=== PATIENT | female | born 1985 | race Caucasian/White ===

== ENCOUNTER 2025-01-22 07:57 | Outpatient (REF) | payer BC, SELFPAY ==
--- NOTE | ~2025-01-22 | MM_ITS ---
EXAMINATION: MM SCREENING DIGITAL BREAST TOMOSYNTHESIS, BILATERAL CLINICAL INFORMATION: Baseline screening. COMPARISON: Mammography: Comparison is made with available priors TECHNIQUE: Digital breast mammography with tomosynthesis is performed in both the craniocaudal and mediolateral oblique views along with computer-aided detection (CAD). FINDINGS: The breasts are heterogeneously dense, which may obscure small masses (ACR BI-RADS breast composition Category c). Left: Asymmetry medial breast anterior to middle depth on CC view. Asymmetry lateral breast posterior depth on CC view. No suspicious calcifications or other abnormal findings. Right: Asymmetry lower breast posterior depth on MLO view. No suspicious calcifications or other abnormal findings. MM/MM tomosynthesis screening BI IMPRESSION: Additional imaging is recommended ASSESSMENT: BI-RADS BI-RADS 0 - Incomplete: Needs additional Imaging. RECOMMENDATION: 1. Additional views of the bilateral breasts. 2. Targeted ultrasound if warranted after review of the additional views. 3. Radiology department staff will contact the patient for additional imaging. Additional Imaging required This examination should not preclude the clinical evaluation of a suspicious palpable abnormality. This patient's information was entered into a reminder system with a target due date for their next mammogram. Electronically signed by: Liseth Jama DO 01/24/2025 10:03 AM EDT
--- OUTSIDE RECORDS SUMMARY | 2025-01-22 08:10 | XMS_ITS | Clinical Summary ---
Author Organization [facility] Address [address] [place] [address] Care Team Providers Care Hydroelectric Plant Structural Engineer Name Role Phone Chantal Kahn Primary Care Provider [phone] Source Comments PLEASE NOTE, if this patient is a minor, it may be UNLAWFUL to discuss sensitive information that is contained in these records (such as FAMILY PLANNING, MENTAL HEALTH or SUBSTANCE ABUSE) with the minor patient's parent or other person without the patient's specific authorization.[facility] Allergies No known active allergies Medications buPROPion HCL (WELLBUTRIN SR) 200 mg 12 hr tablet take 1 tablet by mouth once daily after LUNCH 90 Tablet 06/18/2024 Active Active Problems Problem Noted Date Diagnosed Date Anxiety 01/27/2024 Breast lump in female 01/27/2024 Immunizations Name Administration Dates Next Due Flu, Preservative Free 08/31/2021,10/24/2020 MODERNA COVID-19 VACCINE BIV ALENT, BLUE CAP, 6M+ 09/09/2022 Moderna COVID-19 Vaccine, re d cap blue label, 12+ Primary Series 11/02/2021,12/19/2020,11/21/2020 TDAP 02/14/2023 Family History Medical History Relation Name Comments Hypertrophic cardiomyopathy Maternal Grandfather Pituitary Tumor Maternal Grandfather Breast cancer Maternal Grandmother Breast cancer Mother Hypertension Mother Breast cancer Paternal Aunt Stomach Cancer Paternal Grandfather Breast cancer Paternal Grandmother Relation Name Status Comments Maternal Grandfather Maternal Grandmother Mother Paternal Aunt Paternal Grandfather Paternal Grandmother Social History Tobacco Use Types Packs/Day Years Used Date Smoking Tobacco: Never Smokeless Tobacco: Never Tobacco Cessation:Counseling Given: Not Answered Alcohol Use Standard Drinks/Week Comments Yes 1 (1 standard drink = 0.6 oz pur e alcohol) Social Connections Answer Date Recorded Connectedness 0 07/28/2024 Financial Resource Strain Answer Date R ecorded Financial Resource Strain 0 2021 Stress Answer Date Recorded Stress 0 08/11/2022 Physical Activity Answer Date Recorded Physical Activity 0 08/11/2022 Food Insecurity Answer Date Recorded Food 0 08/09/2024 Transportation Needs Answer Date Record ed Transportation 0 08/11/2022 Housing Stability Answer Date Recorded Housing 0 08/11/2022 Safety and Environment Answer Date Brooks rded Safety 0 08/11/2022 Utilities Answer Date Recorded Utilities 0 08/11/2022 Employment Answer Date Recorded Stress 0 07/28/2024 Comments Unknown Sex and Gender Information Value Date Recorded Sex Assigned at Female 09/18/2022 6:08 AM PDT Legal Sex Female 12:51 PM PDT Gender Identity Female 08/23/2022 10:09 AM PDT Sexual Orientation Queer 08/23/2022 10 :09 AM PDT Last Filed Vital Signs Vital Sign Reading Time Taken Comments Blood Pressure 103/73 03/21/2024 10:27 AM EDT Pulse 80 03/21/2024 10:27 AM EDT Temperature 36.9 ??C (98.4 ??F) 03/21/2024 1 0:27 AM EDT Respiratory Rate 12 03/21/2024 10:2 7 AM EDT Oxygen Saturation 97% 03/21/2024 10: 27 AM EDT Inhaled Oxygen Concentration - - Weight 66.6 kg (146 lb 12.8 oz) 024 10:27 AM EDT Height 166.4 cm (5' 5.5 ) 03/21/2024 10 :27 AM EDT Body Mass Index 24.06 03/21/2024 10:27 AM EDT Plan of Treatment Health Maintenance Due Date Last Done Comments Hepatitis C Screening 1985 Imm-HPV (27-45) (1 - Risk 3- dose series) 1996 HIV Screening 2000 Relationship Safety Screening/Counseling 2000 Dental Prophy 08/06/2023 02/01/2023 Dental BW 02/04/2024 02/01/2023 Dental Examination 02/04/2024 02/01/2023 Dental Perio Charting 02/04/2024 02/01/2023 [id number] ( season) 2024 09/09/2022, 11/02/2021, 12/19/2020, Additional history exists Imm-Influenza (#1) 2024 08/31/2021, 10/24/2020 Alcohol and Drug Screen 11/14/2024 01/27/2024, 01/26 Depression Annual Screen 11/14/2024 01/27/2024 Tobacco Screening 06/18/2025 06/18/2024 Diabetes Screening 01/26/2027 01/27/2024, 0 01/27/2024, 10/24/2020, Additional history exists Hypertension Screening (#1) 03/21/2027 Pap Smear 03/21/2027 03/21/2024 Dental FMX/Pano 02/04/2028 02/01/2023, 02/01/2023 Cervical Cancer Screening 03/21/2029 HPV Screening 03/21/2029 03/21/2024 Pap + HPV 03/21/2029 03/21/2024 Imm-DTaP/Tdap/Td (2 - Td or Tdap) 02/14/2033 023 Cervical Ablation/Cold-Knife Conization Discontinued Cervical Cryotherapy Discontinued Colposcopy Discontinued Endometrial Biopsy Discontinued Excision/Leep Discontinued HPV Genotyping Discontinued Imm-Hepatitis B Discontinued Vaginal Pap Discontinued Vulvoscopy Discontinued Procedures Procedure Name Priority Date/Time Associated Diagnosis Comments HPV PRIMARY SCREENING >=25 YRS WHEN + RFX TO PAP Routine 03/21/2024 11:06 AM EDT Screening for cervical cancer COMPREHENSIVE METABOLIC PANEL Routine 01/27/2024 11:36 AM EDT Encounter for general adult medical examination with abnormal findings PANORAMIC RADIOGRAPHIC IMAGE Routine 02/01/2023 8:45 AM EDT Encounter for dental examination Encounter for dental examination and cleaning with abnormal findings INTRAORAL - COMP SERIES OF RADIOGRAPHIC IMAGES Routine 02/01/2023 8:45 AM EDT Encounter for dental examination Encounter for dental examination and cleaning with abnormal findings PROPHYLAXIS - ADULT Routine 02/01/2023 8 :45 AM EDT Encounter for dental examination Encounter for dental examination and cleaning with abnormal findings PERIODIC ORAL EVALUATION ESTABLISHED PATIENT Routine 02/01/2023 8:45 AM EDT Encounter for dental examination Encounter for dental examination and cleaning with abnormal findings from Last 3 Months or Most Recently Relevant to Health Maintenance Results * HPV PRIMARY SCREENING >=25 YRS WHEN + RFX TO PAP (03/21/2024 11:06 AM EDT) HPV HIGH RISK DNA (NON 16/18) Not Detected Not Detected [facility] Comment: SPECIMEN SOURCE: ?? HPV Primary Screening > 25yo, when positive ? reflex to PAP, CERVIX CLINICAL ? INFORMATION: ? Provided Diagnosis Codes: Z12.4 HPV18 DNA, INVADER(R) Not Detected Not Detected [facility] HPV16 DNA, INVADER(R) Not Detected Not Detected [facility] Comment: HPV High Risk DNA (Non 16/18) (1,2,3,4,5) HPV High Risk DNA Type 18 (1,2,3,4,5) HPV High Risk DNA Type 16 (1,2,3,4,5) (1) The sandra(R) HPV test is FDA-cleared for ThinPrep(R) specimens and detects genomic HPV DNA in the polymorphic L1 region in 14 subtypes: Type 16, Type 18, and other high risk types (31,33,35,39,45,51,52,56,58,59,66,68). The test has been modified and validated for use in SurePath(TM) specimens. (2) HPV types 16 and/or 18 that were Not Detected were undetectable or below the pre-set threshold. (3) The non-repeat rate for HPV genotyping assays varies from 5 to 15%. ?? In the NILM cytology category, there is a low positive predictive value (PPV = 15-20%) for CIN2+ with a positive high risk HPV result. (4) This test was evaluated and its performance characteristics determined by [facility]. ??It has not been cleared or approved by the U.S. Food and Drug Administration. ??The FDA has determined that such clearance or approval is not necessary. ?? [facility] is certified under the Clinical Laboratory Improvement Amendments of 1988 (CLIA) as qualified to perform high complexity clinical testing. ??This test is used for clinical purposes. It should not be regarded as investigational or for research. (5) Results should be interpreted together with past and current clinical and laboratory data. Cervix Cervix uteri structure / Unknown 03/21/2024 11:06 AM EDT 03/21/2024 10:31 PM EDT Hai Ji MANAGER CLEANING-BC LAB - NO BLOOD DRAW Final R esult [facility] [address] [place] [address] [employer] [place] [address], * COMPREHENSIVE METABOLIC PANEL (01/27/2024 11:36 AM EDT) TOTAL PROTEIN 7.0 5.9 - 8.4 g/dL [facility] ALBUMIN 4.8 3.5 - 5.2 g/dL [facility] GLOBULIN 2.2 1.7 - 3.7 g/dL [facility] A/G RATIO 2.2 1.1 - 2.9 Ratio [facility] SODIUM 137 135 - 147 mmol/L [facility] POTASSIUM 4.6 3.5 - 5.5 mmol/L [facility] CHLORIDE 101 96 - 108 mmol/L [facility] CO2 25 19 - 29 mmol/L [facility] BUN 12 6 - 20 mg/dL [facility] CREATININE (blood) 0.97 0.49 - 1.02 mg/dL [facility] EGFR 77 >or=60 mL/min [facility] [email or web address] [facility] Comment: GFR categories in CKD Category ?GFR ? Terms ?ml/min/1.73 m2 G1 ? >or=90 ? Normal or high G2 ?60-89 ? Mildly decreased* G3a ? 45-59 ? Mildly to moderately decreased G3b ? 30-44 ? Moderately to severely decreased G4 ?15-29 ? Severely decreased G5 ?<15 ? Kidney failure Abbreviations: CKD, chronic kidney disease; GFR, glomerular filtration rate. *Relative to young adult level. In the absence of evidence of kidney damage, neither GFR category G1 nor G2 fulfill the criteria for CKD. NOTE: The National Kidney Foundation recommends using the ?CKD-EPI Creatinine Equation (2020) to estimate GFR ?in adults. The new CKD-EPI equation is in use 01/17/2023. BUN/CREAT RATIO 12.4 10.0 - 28.0 Ratio [facility] CALCIUM 9.2 8.6 - 10.4 mg/dL [facility] Bilirubin, Total 0.4 <1.2 mg/dL [facility] ALK-P TOTAL 54 40 - 156 U/L [facility] AST 14 <32 U/L [facility] ALT 9 <33 U/L [facility] GLUCOSE 81 70 - 99 mg/dL [facility] Blood Blood / Unknown 01/27/2024 1 1:36 AM EDT 01/27/2024 10:51 PM EDT us Chantal Kahn LAB - BLOOD DRAW Final Result [facility] [address] [place] [address], [place] [phone] from Last 3 Months or Most Recently Relevant to Health Maintenance Insurance [employer] Member Subscriber Plan / Payer (Ef fective 2023-Present) Name:Randy Pulido Relation to Subscriber:Self Name:Randy Pulido Payer ID:[id number] Type:Indemnity Address: [place] [address] Care Teams Hydroelectric Plant Structural Engineer Relationship Specialty Start Date End Date Chantal Kahn [address] [place] [phone] PCP - General SCHOOL BUS TECHNICIAN Nurse Practitioner 01/27/24
== END 2025-01-22 07:58 | disposition home or self-care (01) ==
LOC: HO.MAMMO 07:57
PROVIDERS: PCP Emergency Medicine; Visit Provider Plastic Surgery
DX: Z12.31 Encounter for screening mammogram for malignant neoplasm of breast (principal)
CPT/HCPCS: 77063; 77067

== ENCOUNTER → 2025-01-22 08:00 | Outpatient (BNV) | payer BC, SELFPAY | PROVIDERS: PCP Emergency Medicine; Visit Provider Internal Medicine | DX: Z12.31 Encounter for screening mammogram for malignant neoplasm of breast (principal) | CPT/HCPCS: 77063; 77067 ==

== ENCOUNTER 2025-02-12 09:18 | Outpatient (REF) | payer BC, SELFPAY ==
--- OUTSIDE RECORDS SUMMARY | 2025-02-12 10:24 | XMS_ITS | Clinical Summary ---
Author Organization [facility] Address [address] [place] [address] Care Team Providers Care Boiler Operator Name Role Phone Chantal Kahn Primary Care Provider [phone] Source Comments PLEASE NOTE, if this patient [...] 01/27/2024 Breast lump in female 01/27/2024 Immunizations Immunization Administration Dates Next Due Flu, Preservative Free [...] Health Maintenance Due Date Last Done Comments Anxiety Screening 1985 Hepatitis C Screening 1985 Imm-HPV (27-45) (1 - Risk 3- dose series) 1996 HIV Screening 2000 Relationship Safety Screening/Counseling 2000 Dental Prophy 08/06/2023 02/01/2023 Dental BW 02/04/2024 02/01/2023 Dental Examination 02/04/2024 02/01/2023 Dental Perio Charting 02/04/2024 02/01/2023 [id number] ( season) 2024 09/09/2022, 11/02/2021, 12/19/2020, Additional [...] DNA (NON 16/18) Not Detected Not Detected [facility] Comment: SPECIMEN SOURCE: ?? HPV Primary Screening > 25yo, when positive ? reflex to PAP, CERVIX CLINICAL ? INFORMATION: ? Provided Diagnosis Codes: Z12.4 HPV18 DNA, INVADER(R) Not Detected Not Detected [facility] HPV16 DNA, INVADER(R) Not Detected Not Detected [facility] Comment: HPV High Risk DNA (Non [...] evaluated and its performance characteristics determined by [facility]. ??It has not been cleared or approved by the U.S. Food and Drug Administration. ??The FDA has determined that such clearance or approval is not necessary. ?? [facility] is certified under the Clinical Laboratory Improvement [...] EDT 03/21/2024 10:31 PM EDT Hai Ji TOPOGRAPHY TECHNICIAN-BC LAB - NO BLOOD DRAW Final R esult [facility] [address] [place] [address] [employer] [place] [address], * COMPREHENSIVE METABOLIC PANEL (01/27/2024 11:36 AM EDT) TOTAL PROTEIN 7.0 5.9 - 8.4 g/dL [facility] ALBUMIN 4.8 3.5 - 5.2 g/dL [facility] GLOBULIN 2.2 1.7 - 3.7 g/dL [facility] A/G RATIO 2.2 1.1 - 2.9 Ratio [facility] SODIUM 137 135 - 147 mmol/L [facility] POTASSIUM 4.6 3.5 - 5.5 mmol/L [facility] CHLORIDE 101 96 - 108 mmol/L [facility] CO2 25 19 - 29 mmol/L [facility] BUN 12 6 - 20 mg/dL [facility] CREATININE (blood) 0.97 0.49 - 1.02 mg/dL [facility] EGFR 77 >or=60 mL/min [facility] [facility] Comment: GFR categories in CKD Category [...] BUN/CREAT RATIO 12.4 10.0 - 28.0 Ratio [facility] CALCIUM 9.2 8.6 - 10.4 mg/dL [facility] Bilirubin, Total 0.4 <1.2 mg/dL [facility] ALK-P TOTAL 54 40 - 156 U/L [facility] AST 14 <32 U/L [facility] ALT 9 <33 U/L [facility] GLUCOSE 81 70 - 99 mg/dL [facility] Blood Blood / Unknown 01/27/2024 1 1:36 AM EDT 01/27/2024 10:51 PM EDT Chantal Kahn LAB - BLOOD DRAW Final Result [facility] [address] [facility] [employer] [place] [address], [place] [phone] from Last 3 Months or Most Recently Relevant to Health Maintenance Insurance [facility] [place]NOTE 2] Member Subscriber Plan / Payer (Ef fective 2023-Present) Name:Randy Pulido Relation to Subscriber:Self Name:Randy Pulido Payer ID:[id number] Type:Indemnity Address: [place] [address] Care Teams Boiler Operator Relationship Specialty Start Date End Date Chantal Kahn [address] [place] [phone] PCP - General LABOR RELATIONS DIRECTOR Nurse Practitioner 01/27/24
== END 2025-02-12 09:19 | disposition home or self-care (01) ==
LOC: HO.MAMMO 09:18
PROVIDERS: Absent Provider Plastic Surgery; PCP Emergency Medicine; Visit Provider Emergency Medicine
DX: Z13.89 Encounter for screening for other disorder (principal)

== ENCOUNTER → 2025-02-14 08:30 | Outpatient (BNV) | payer BC, SELFPAY | PROVIDERS: Visit Provider Internal Medicine | DX: R92.323 Mammographic fibroglandular density, bilateral breasts (principal) | CPT/HCPCS: 77062; 77066 ==

== ENCOUNTER 2025-02-14 08:31 | Outpatient (REF) | payer BC, SELFPAY ==
--- NOTE | ~2025-02-14 | MM_ITS ---
EXAMINATION: MM DIAGNOSTIC DIGITAL BREAST TOMOSYNTHESIS, BILATERAL CLINICAL INFORMATION: Call back from screening for bilateral asymmetries. COMPARISON: Mammography: Comparison is made with relevant prior exams. TECHNIQUE: Digital breast mammography with tomosynthesis is performed in both the craniocaudal and mediolateral oblique views along with computer-aided detection (CAD). FINDINGS: The breasts are heterogeneously dense, which may obscure small masses (ACR BI-RADS breast composition Category c). The previously seen asymmetries in the lower right breast on MLO view does not persist on additional imaging projections and likely represented overlapping normal fibroglandular breast tissue. The previously seen asymmetry in the lateral left breast on CC view does not persist on additional imaging projections and likely represented overlapping normal fibroglandular breast tissue. The previously seen asymmetry in the retroareolar region of the left breast on CC view does not persist on additional imaging projections and likely represented overlapping normal fibroglandular breast tissue. There are no significant masses, abnormal calcifications, or other abnormalities. Results are provided to the patient at time of visit by the technologist. MM/MM tomosynthesis added view BI IMPRESSION: No mammographic evidence of malignancy. ASSESSMENT: BI-RADS BI-RADS 1 - Negative RECOMMENDATION: 1 year F/U This patient's information was entered into a reminder system with a target due date for their next mammogram. Electronically signed by: Liseth Jama DO 02/14/2025 09:44 AM EDT
--- OUTSIDE RECORDS SUMMARY | 2025-02-14 08:39 | XMS_ITS | Clinical Summary ---
Author Organization [facility] Address [address] [place] [address] Care Team Providers Care Corporate Fitness Program Coordinator Name Role Phone Chantal Kahn Primary Care Provider [phone] Source Comments PLEASE NOTE, if this patient [...] 02/04/2024 02/01/2023 Dental Perio Charting 02/04/2024 02/01/2023 [id number] ( season) 2024 09/09/2022, 11/02/2021, 12/19/2020, Additional [...] DNA (NON 16/18) Not Detected Not Detected [facility] Comment: SPECIMEN SOURCE: ?? HPV Primary Screening > 25yo, when positive ? reflex to PAP, CERVIX CLINICAL ? INFORMATION: ? Provided Diagnosis Codes: Z12.4 HPV18 DNA, INVADER(R) Not Detected Not Detected [facility] HPV16 DNA, INVADER(R) Not Detected Not Detected [facility] Comment: HPV High Risk DNA (Non [...] evaluated and its performance characteristics determined by [facility]. ??It has not been cleared or approved by the U.S. Food and Drug Administration. ??The FDA has determined that such clearance or approval is not necessary. ?? [facility] is certified under the Clinical Laboratory Improvement [...] EDT 03/21/2024 10:31 PM EDT Hai Ji SUPERVISOR CELL ROOM-BC LAB - NO BLOOD DRAW Final R esult [facility] [address] [place] [address] [place] [address], * COMPREHENSIVE METABOLIC PANEL (01/27/2024 11:36 AM EDT) TOTAL PROTEIN 7.0 5.9 - 8.4 g/dL [facility] ALBUMIN 4.8 3.5 - 5.2 g/dL [facility] GLOBULIN 2.2 1.7 - 3.7 g/dL [facility] A/G RATIO 2.2 1.1 - 2.9 Ratio [facility] SODIUM 137 135 - 147 mmol/L [facility] POTASSIUM 4.6 3.5 - 5.5 mmol/L [facility] CHLORIDE 101 96 - 108 mmol/L [facility] CO2 25 19 - 29 mmol/L [facility] BUN 12 6 - 20 mg/dL [facility] CREATININE (blood) 0.97 0.49 - 1.02 mg/dL [facility] EGFR 77 >or=60 mL/min [facility] [employer] [facility] Comment: GFR categories in CKD Category [...] INC AST 14 <32 U/L [facility] ALT 9 <33 U/L [facility] GLUCOSE 81 70 - 99 mg/dL [facility] Blood Blood / Unknown 01/27/2024 1 1:36 AM EDT 01/27/2024 10:51 PM EDT Chantal Kahn LAB - BLOOD DRAW Final Result [facility] [address] [facility] [place] [address], [place] [phone] from Last 3 Months or Most Recently Relevant to Health Maintenance Insurance [facility] Member Subscriber Plan / Payer (Ef fective 2023-Present) Name:Randy Pulido Relation to Subscriber:Self Name:Randy Pulido Payer ID:[id number] Type:Indemnity Address: [place] [address] Care Teams Corporate Fitness Program Coordinator Relationship Specialty Start Date End Date Chantal Kahn [address] [place] [phone] PCP - General EMERGENCY ROOM CLERK Nurse Practitioner 01/27/24
== END 2025-02-14 08:32 | disposition home or self-care (01) ==
LOC: HO.MAMMO 08:31
PROVIDERS: Visit Provider Plastic Surgery
DX: R92.8 Other abnormal and inconclusive findings on diagnostic imaging of breast (principal); F64.9 Gender identity disorder, unspecified
CPT/HCPCS: 77062; 77066

== ENCOUNTER 2025-06-26 08:52 | Outpatient (REF) | payer BC, SELFPAY ==
--- NOTE | ~2025-06-26 | US_ITS ---
EXAMINATION: US PELVIS CLINICAL INFORMATION: PELVIC PAIN COMPARISON: None available. TECHNIQUE: Ultrasound of the pelvis is performed using both transabdominal and transvaginal transducers along with Doppler. Transvaginal imaging is performed due to inadequate visualization transabdominally. FINDINGS: Uterus: The uterus is anteverted and anteflexed and measures 8.2 x 3.9 x 4.7 cm (volume of 77.3 cc). The double wall endometrial thickness is 1.1 cm The uterus is smooth in contour and has normal myometrial echogenicity. No focal lesions demonstrated. Adnexa: Unremarkable appearance of the ovaries. Right ovary measures 2.5 x 1.8 x 2.4 cm (volume of 5.5 cc). Left ovary measures 2.9 x 2.2 x 2.1 cm (volume of 7.3 cc). Pelvis: No free fluid. US/US pelvic and transvaginal IMPRESSION: Unremarkable sonographic appearance of the uterus and ovaries. That reports Electronically signed by: Abelardo Lay MD 06/27/2025 06:52 AM EDT
--- OUTSIDE RECORDS SUMMARY | 2025-06-26 09:11 | XMS_ITS | Clinical Summary ---
Author Organization [facility] Address [address] [place] [address] Care Team Providers Care Manager Storage Name Role Phone Chantal Kahn Primary Care Provider [phone] Source Comments PLEASE NOTE, if this patient [...] 80 03/21/2024 10:27 AM EDT Temperature 36.9 C (98.4 F) 03/21/2024 10:27 AM EDT Respiratory Rate 12 03/21/2024 10:2 [...] Anxiety Screening 1985 Hepatitis C Screening 1985 Tobacco Screening 1985 Imm-HPV (27-45) (1 - Risk 3- dose series) 1996 HIV Screening 2000 Relationship Safety Screening/Counseling 2000 Dental Prophy 08/06/2023 02/01/2023 Dental BW 02/04/2024 02/01/2023 Dental Examination 02/04/2024 02/01/2023 Dental Perio Charting 02/04/2024 02/01/2023 [id number] ( season) 2024 09/09/2022, 11/02/2021, 12/19/2020, Additional history exists Alcohol and Drug Screen 11/14/2024 01/27/2024, 01/26 Depression Annual Screen 11/14/2024 01/27/2024 Imm-Influenza (#1) 2025 08/31/2021, 10/24/2020 Diabetes Screening 01/26/2027 01/27/2024, 0 01/27/2024, 10/24/2020, [...] Recently Relevant to Health Maintenance Results * > Cervical primary HPV screen [routine non-HIV] (B [id number]) (03/21/2024 11:06 AM EDT) HPV HIGH RISK DNA (NON 16/18) Not Detected Not Detected [facility] Comment: SPECIMEN SOURCE: HPV Primary Screening > 25yo, when positive reflex to PAP, CERVIX CLINICAL INFORMATION: Provided Diagnosis Codes: Z12.4 HPV18 DNA, INVADER(R) Not Detected Not Detected [facility] HPV16 DNA, INVADER(R) Not Detected Not Detected [facility] Comment: HPV High Risk DNA (Non [...] genotyping assays varies from 5 to 15%. In the NILM cytology category, there is a low positive predictive value (PPV = 15-20%) for CIN2+ with a positive high risk HPV result. (4) This test was evaluated and its performance characteristics determined by [facility]. It has not been cleared or approved by the U.S. Food and Drug Administration. The FDA has determined that such clearance or approval is not necessary. [facility] is certified under the Clinical Laboratory Improvement Amendments of 1988 (CLIA) as qualified to perform high complexity clinical testing. This test is used for clinical purposes. It should not be regarded as investigational or for research. (5) Results should be interpreted together with past and current clinical and laboratory data. Cervix Cervix uteri structure / Unknown 03/21/2024 11:06 AM EDT 03/21/2024 10:31 PM EDT Donavonbeto Garrison TOOL OR DIE DRAWING CHECKER- LAB - PATHOLOGY AND CYTOLOG Y AMBULATORY Final Result [facility] [address] [place] [address] [place] [address], * > Comprehensive Metabolic Panel (CMP) (B 3427) (01/27/2024 11:36 AM EDT) TOTAL PROTEIN 7.0 5.9 - 8.4 g/dL [facility] ALBUMIN 4.8 3.5 - 5.2 g/dL [facility] GLOBULIN 2.2 1.7 - 3.7 g/dL [facility] A/G RATIO 2.2 1.1 - 2.9 Ratio [facility] SODIUM 137 135 - 147 mmol/L [facility] POTASSIUM 4.6 3.5 - 5.5 mmol/L [facility] CHLORIDE 101 96 - 108 mmol/L [facility] CO2 25 19 - 29 mmol/L [facility] BUN 12 6 - 20 mg/dL [facility] CREATININE (blood) 0.97 0.49 - 1.02 mg/dL [facility] EGFR 77 >or=60 mL/min [facility] Comment: GFR categories in CKD Category GFR Terms ml/min/1.73 m2 G1 >or=90 Normal or high G2 60-89 Mildly decreased* G3a 45-59 Mildly to moderately decreased G3b 30-44 Moderately to severely decreased G4 15-29 Severely decreased G5 <15 Kidney failure Abbreviations: CKD, chronic kidney disease; GFR, glomerular filtration rate. *Relative to young adult level. In the absence of evidence of kidney damage, neither GFR category G1 nor G2 fulfill the criteria for CKD. NOTE: The National Kidney Foundation recommends using the CKD-EPI Creatinine Equation (2020) to estimate GFR in adults. The new CKD-EPI equation is in use 01/17/2023. BUN/CREAT RATIO 12.4 10.0 - 28.0 Ratio [facility] CALCIUM 9.2 8.6 - 10.4 mg/dL [facility] Bilirubin, Total 0.4 <1.2 mg/dL [facility] ALK-P TOTAL 54 40 - 156 U/L [facility] AST 14 <32 U/L [facility] ALT 9 <33 U/L [facility] GLUCOSE 81 70 - 99 mg/dL [facility] Blood Blood / Unknown 01/27/2024 1 1:36 AM EDT 01/27/2024 10:51 PM EDT Chantal Kahn LAB - BLOOD DRAW Final Result [facility] [address] [place] [address] [place] [address], from Last 3 Months or Most Recently Relevant to Health Maintenance Insurance [facility] Care Teams Manager Storage Relationship Specialty Start Date End Date Chantal Kahn [address] [place] [address] PCP - General [employer] Nurse Practitioner 01/27/24
== END 2025-06-26 08:53 | disposition home or self-care (01) ==
LOC: HO.UMASIMG 08:52
PROVIDERS: Visit Provider Family Medicine
DX: R10.2 Pelvic and perineal pain (principal)
CPT/HCPCS: 76830; 76856

== ENCOUNTER → 2025-06-26 15:30 | Outpatient (BNV) | payer BC, SELFPAY | PROVIDERS: Visit Provider Radiology Body Imaging | DX: R10.2 Pelvic and perineal pain (principal) | CPT/HCPCS: 76830; 76856 ==